=== PATIENT | male | born 1975 | race Asian ===

== ENCOUNTER 2020-11-21 19:46 | Emergency (ER) | payer MEDICAID ==
[~2020-11-21] VITALS: Ht 170.2 cm; Wt 81.8 kg
[2020-11-21 21:30] VITALS: BP 126/78
== END 2020-11-21 21:35 | disposition home or self-care (01) ==
LOC: EMS 19:46
DX: G51.0 Bell's palsy (principal)
CPT/HCPCS: 99283; Z7502

== ENCOUNTER 2020-11-23 14:49 | Emergency (ER) | payer MEDICAID ==
[~2020-11-23] VITALS: Ht 177.8 cm; Wt 75.0 kg
[2020-11-23] MEDS ORDERED: VALA500T34 PO (14:55)
[2020-11-23] MEDS ORDERED: PRED20 PO (14:55)
[2020-11-23 18:04] VITALS: BP 128/74
== END 2020-11-23 18:06 | disposition home or self-care (01) ==
LOC: EMS 14:52
DX: K08.89 Other specified disorders of teeth and supporting structures (principal)